=== PATIENT | male | born 1960 | race Caucasian/White ===

== ENCOUNTER 2020-01-02 13:19 | Emergency (ER) | payer MEDICAID ==
[~2020-01-02] VITALS: Ht 172.7 cm; Wt 74.8 kg
--- NOTE | 2020-01-02 14:13 | NUR ---
THEODORE FROM [facility] TO ER BED 7. AAOX3. NOT IN RESP DISTRESS. AMBULATORY. BROUGHT IN FOR COVID TESTING. PER REPORT, PT IS POSITIVE BUT NO DOCUMENT RECEIVED FROM FACILITY. NO RESP SYMPTOMS NOTED. PT IS AFEBRILE. NO MEDICAL COMPLAINT. DENIES ANY PAIN. MD AT BEDSIDE FOR EVAL.
[2020-01-02] MEDS ORDERED: TRAZ-257 PO (14:15)
[2020-01-02] MEDS ORDERED: DIVA-78 PO (14:15)
--- NOTE | 2020-01-02 14:32 | NUR ---
COVID SWAB OBTAINED AND SENT TO LAB.
[2020-01-02 14:39] LABS: BASOPHILS % (AUTO) 0.4 % (0.0-2.0); EOSINOPHILS % (AUTO) 1.3 % (0.0-6.0); HEMATOCRIT 43 % (39-51); HEMOGLOBIN 14.4 g/dL (13.5-17.5); LYMPHOCYTES # (AUTO) 3.1 /CMM (0.8-4.8); LYMPHOCYTES % (AUTO) 35.3 % (20.0-44.0); MEAN CORPUSCULAR HGB CONC 34 g/dl (31.0-36.0); MEAN CORPUSCULAR VOLUME 93 fL (80-96); MONOCYTES # (AUTO) 0.7 /CMM (0.1-1.30); MONOCYTES % (AUTO) 7.6 % (2.0-12.0); NEUTROPHILS # (AUTO) 4.8 /CMM (1.8-8.9); NEUTROPHILS % (AUTO) 55.4 % (43.0-81.0); PLATELET COUNT (AUTO) 217 /CMM (150-450); RED BLOOD CELL COUNT(AUTO) 4.59 MIL/uL (4.5-6.0); WHITE BLOOD COUNT (AUTO) 8.7 K/uL (4.3-11.0)
[2020-01-02 14:49] LABS: CALCIUM, SERUM 8.7 mg/dL (8.5-10.1); POTASSIUM 3.7 mmol/L (3.5-5.1)
[2020-01-02 14:54] LABS: ALBUMIN 3.4 g/dL (3.4-5.0); BILIRUBIN,TOTAL 0.1 mg/dL (0.2-1.0); TOTAL PROTEIN, SERUM 6.5 g/dL (6.4-8.2)
--- NOTE | 2020-01-02 15:18 | NUR ---
CALLED [facility] FOR AMULANCE TRANSFER, ETA 1 HOUR.
--- NOTE | 2020-01-02 16:10 | NUR ---
CALLED FACILITY TO INFORM PT IS COMING BACK. COVID NEGATIVE. SPOKE WITH FARZANEH - CAREGIVER
--- NOTE | 2020-01-02 16:44 | NUR ---
[facility] AT BEDSIDE FOR PT TRANSPORT BACK TO [facility]. PT IS IN STABLE CONDITION. NAD NOTED. PT IS AMBULATORY ON STEADY GAIT.
[2020-01-02 17:01] VITALS: BP 123/83
== END 2020-01-02 17:01 ==
LOC: ER 13:25
DX: Z03.818 Encounter for observation for suspected exposure to other biological agents ruled out (principal); F29 Unspecified psychosis not due to a substance or known physiological condition; G47.00 Insomnia, unspecified; Z79.899 Other long term (current) drug therapy; R91.8 Other nonspecific abnormal finding of lung field
CPT/HCPCS: 36415; 71045-TC; 80053-TC; 85025-TC